=== PATIENT | female | born 1960 | race Caucasian/White ===

== ENCOUNTER → 2016-05-22 | Outpatient (CLI) | payer OTHER ==
[~2016-05-22] MED LIST: B-12250 MCG; CENTURY CARDIO1 EAC1; DOXYCYCLINE HY100 MG PO; IRON18 MG; MAGNESIUM500 MG; METHOTREXATE2.5 MG; NAPROXEN500 M2 PO; TRAMADOL HCL50 MG; VICODIN 5-3001 EACH PO; VITAMIN C500 M1; VITAMIN D50000 UNI1
== END | disposition home or self-care (01) ==
DX: M17.12 Unilateral primary osteoarthritis, left knee (principal); R26.2 Difficulty in walking, not elsewhere classified; M62.81 Muscle weakness (generalized); M25.662 Stiffness of left knee, not elsewhere classified
CPT/HCPCS: 97150 GO; 97161 GP; 97165 GO; G8978 GP; G8979 GP; G8980 GP; G8987 GO; G8988 GO; G8989 GO

== ENCOUNTER 2016-07-09 05:34 | Inpatient (IN) | payer OTHER ==
[~2016-07-09] VITALS: Ht 167.6 cm; Wt 86.3 kg
[~2016-07-09 05:34] MED LIST changes: +CALCIUM600 M1 PO; +CYANOCOBAL1000 MCG/2 IM; +FERROUS SULFAT325 MG PO; +FOLIC ACID1 MG PO; +HUMIRA40 MG/0.8 SC; +MULTIVITAMIN1 EAC2 PO; +NAPROSYN500 MG PO; +OMEPRAZOLE40 M1 PO; +RECLAST5 MG/100 M IV; +TRAMADOL HCL50 MG PO; +VITAMIN C1000 MG PO; +VITAMIN D5000 UNI1 PO
[2016-07-09 09:45] LABS: HEMATOCRIT 31.2 % (36.0-46.0); MCH 29.8 PG (29.0-34.0); MCHC 30.4 G/DL (30.0-36.0); MCV 97.8 FL (83-99); MEAN PLAT.VOLUME 10.6 uM^3 (9.5-12.4); PLATELET COUNT 248 K/uL (156-360); RBC DIS.WIDTH-CV 12.5 % (11.8-14.6); RBC DIS.WIDTH-SD 44.9 % (39-53); RED BLOOD COUNT 3.19 M/uL (3.80-5.20)
[2016-07-09 10:16] LABS: WHITE BLOOD COUNT 4.7 K/uL (4.1-10.2)
[2016-07-09 10:39] VITALS: BP 94/51
[2016-07-09 11:34] VITALS: BP 102/58
[2016-07-09 16:08] VITALS: BP 133/69
[2016-07-09 20:28] VITALS: BP 154/64
[2016-07-10 00:25] VITALS: BP 174/77
[2016-07-10 04:14] VITALS: BP 162/72
[2016-07-10 05:40] LABS: HEMATOCRIT 30.3 % (36.0-46.0); MCV 94.4 FL (83-99)
[2016-07-10 05:59] LABS: ANION GAP 9 MEQ/L (2-14); CHLORIDE 105 MEQ/L (99-109); GFR ESTIMATE (CALCULATED) > 59 mL/min/; GLUCOSE 108 mg/dL (70-99); POTASSIUM 2.6 MEQ/L (3.7-5.4); SAMPLE HEMOLYSIS CHECK 0; SAMPLE ICTERIC CHECK 0; SAMPLE LIPEMIA CHECK 0; SODIUM 139 MEQ/L (136-147); UREA NITROGEN (BUN) 4 mg/dL (9-23)
[2016-07-10 08:00] VITALS: BP 141/67
[2016-07-10 12:02] VITALS: BP 134/60; BP 161/73
[2016-07-10 16:00] VITALS: BP 134/66
[2016-07-10 20:23] VITALS: BP 120/65
[2016-07-11 00:13] VITALS: BP 122/58
[2016-07-11 04:11] VITALS: BP 118/61
[2016-07-11 05:51] LABS: HEMATOCRIT 29.9 % (36.0-46.0); MCV 94.6 FL (83-99)
[2016-07-11 06:10] LABS: ANION GAP 8 MEQ/L (2-14); CHLORIDE 102 MEQ/L (99-109); GFR ESTIMATE (CALCULATED) > 59 mL/min/; GLUCOSE 88 mg/dL (70-99); SAMPLE HEMOLYSIS CHECK 0; SAMPLE ICTERIC CHECK 0; SAMPLE LIPEMIA CHECK 0; SODIUM 138 MEQ/L (136-147); UREA NITROGEN (BUN) 4 mg/dL (9-23)
[2016-07-11 08:00] VITALS: BP 115/66
[2016-07-11] MEDS ORDERED: DOCUSATE SODIU100 MG PO (08:28)
[2016-07-11] MEDS ORDERED: K-DUR20 MEQ PO (08:29)
[2016-07-11] MEDS ORDERED: ENDOCET 5-3251 EACH PO (08:29)
[2016-07-11] MEDS ORDERED: LOVENOX40 MG/0.4 SC (08:29)
[2016-07-11 12:19] VITALS: BP 114/62
[2016-07-11 15:20] VITALS: BP 124/62
== END 2016-07-11 16:46 | DRG 470 ==
LOC: 2SOUTH → 3WEST 10:17 → 2SOUTH 11:17 → 3WEST 07-11 16:46
PROVIDERS: Hospitalist; Orthopaedic Surgery
PROC: 0SRD0JA Replacement of Left Knee Joint with Synthetic Substitute, Uncemented, Open Approach (ICD-10-PCS; principal; 2016-07-09)
DX: M17.12 Unilateral primary osteoarthritis, left knee (principal); E11.8 Type 2 diabetes mellitus with unspecified complications; K59.00 Constipation, unspecified; E87.6 Hypokalemia; M25.562 Pain in left knee; K21.9 Gastro-esophageal reflux disease without esophagitis; M06.9 Rheumatoid arthritis, unspecified; M81.0 Age-related osteoporosis without current pathological fracture; Z88.2 Allergy status to sulfonamides; Z98.84 Bariatric surgery status; Z87.891 Personal history of nicotine dependence
CPT/HCPCS: 73560; 80048; 82088 90; 83735; 84244 90; 85014; 85018; 85027; 93005; C1713; J0690; J1170; J1650; J2250; J3480; J7050

== ENCOUNTER 2016-12-09 22:08 | Inpatient (IN) | payer OTHER ==
[~2016-12-09] VITALS: Ht 157.5 cm; Wt 87.2 kg
[~2016-12-09 22:08] MED LIST changes: +DOCUSATE SODIU100 MG PO; +ENDOCET 5-3251 EACH PO; +K-DUR20 MEQ PO; +LOVENOX40 MG/0.4 SC; +ULTRAM50 MG PO
[2016-12-10 10:16] VITALS: BP 125/73
[2016-12-10 16:01] LABS: HEMATOCRIT 27.9 % (36.0-46.0); MCH 29.5 PG (29.0-34.0); MCHC 30.8 G/DL (30.0-36.0); MCV 95.5 FL (83-99); MEAN PLAT.VOLUME 10.2 uM^3 (9.5-12.4); RBC DIS.WIDTH-CV 14.5 % (11.8-14.6); RBC DIS.WIDTH-SD 49.7 % (39-53); WHITE BLOOD COUNT 4.7 K/uL (4.1-10.2)
[2016-12-10 16:18] LABS: PLATELET COUNT 240 K/uL (156-360); RED BLOOD COUNT 2.92 M/uL (3.80-5.20)
[2016-12-10 16:52] VITALS: BP 113/62
[2016-12-10 20:04] VITALS: BP 103/54
[2016-12-10 23:32] VITALS: BP 133/63
[2016-12-11 04:22] VITALS: BP 136/74
[2016-12-11 05:15] LABS: HEMATOCRIT 27.4 % (36.0-46.0); MCV 93.2 FL (83-99)
[2016-12-11 05:43] LABS: ANION GAP 7 MEQ/L (2-14); CHLORIDE 109 MEQ/L (99-109); GFR ESTIMATE (CALCULATED) > 59 mL/min/; GLUCOSE 106 mg/dL (70-99); POTASSIUM 3.7 MEQ/L (3.7-5.4); SAMPLE HEMOLYSIS CHECK 0; SAMPLE ICTERIC CHECK 0; SAMPLE LIPEMIA CHECK 0; SODIUM 141 MEQ/L (136-147); UREA NITROGEN (BUN) 8 mg/dL (9-23)
[2016-12-11 08:00] VITALS: BP 125/66
[2016-12-11 11:55] VITALS: BP 131/62
[2016-12-11 15:56] VITALS: BP 138/68
[2016-12-11 20:02] VITALS: BP 123/56
[2016-12-12] VITALS: BP 129/60
[2016-12-12 04:00] VITALS: BP 118/58
[2016-12-12 05:36] LABS: HEMATOCRIT 27.4 % (36.0-46.0); MCV 93.5 FL (83-99)
[2016-12-12] MEDS ORDERED: SENNA PLUS TAB1 EACH PO (08:06)
[2016-12-12] MEDS ORDERED: LOVENOX40 MG/0.4 SC (08:07)
[2016-12-12] MEDS ORDERED: ENDOCET 5-3251 EACH PO (08:07)
[2016-12-12 08:24] VITALS: BP 131/56
[2016-12-12 12:00] VITALS: BP 139/71
== END 2016-12-12 14:57 | DRG 470 ==
LOC: ENRESERV 22:08 → 2SOUTH 12-10 08:57 → 3WEST 12-10 09:43 → 2SOUTH 12-10 09:43 → 3WEST 12-10 16:27
PROVIDERS: Orthopaedic Surgery
PROC: 0SRC0J9 Replacement of Right Knee Joint with Synthetic Substitute, Cemented, Open Approach (ICD-10-PCS; principal; 2016-12-10)
DX: M17.11 Unilateral primary osteoarthritis, right knee (principal); M81.0 Age-related osteoporosis without current pathological fracture; M06.9 Rheumatoid arthritis, unspecified; K21.9 Gastro-esophageal reflux disease without esophagitis; Z96.652 Presence of left artificial knee joint; Z98.84 Bariatric surgery status; Z88.2 Allergy status to sulfonamides; Z87.891 Personal history of nicotine dependence
CPT/HCPCS: 73560; 80048; 85014; 85018; 85027; 97530 GP; C1713; J0690; J1170; J1650; J2250; J2405; J3010; J7050; Q0175